=== PATIENT | male | born 1995 | race Caucasian/White ===

== ENCOUNTER 2020-09-16 01:33 | Emergency (ER) | payer OTHER ==
[~2020-09-16] VITALS: Ht 170.2 cm; Wt 63.5 kg
[2020-09-16] MEDS ORDERED: CARDIZEM CD180 M1 (01:52)
[2020-09-16] MEDS ORDERED: CHILDREN'S ASPI81 MG (01:52)
[2020-09-16] MEDS ORDERED: VISTARIL50 MG (01:52)
[2020-09-16] MEDS ORDERED: DOLOGEN CAPLET1 EACH (01:53)
== END 2020-09-16 04:32 | disposition home or self-care (01) ==
LOC: ER 01:33
DX: R00.2 Palpitations (principal)